=== PATIENT | female | born 1990 | race Caucasian/White ===

== ENCOUNTER → 2016-08-10 | Day surgery (SDC) | payer OTHER ==
[~2016-08-10] VITALS: Ht 162.6 cm; Wt 96.6 kg
[~2016-08-10] MED LIST: BUPIVACAINE HCL PF 0.5% 30 ML VIAL ONE; DO NOT ADM ANY ANTICOAGULANT DRUGS XX PRN; FAMOTIDINE 20 MG/2 ML VIAL ONE; FERRIC SUBSULFATE 8 ML TOP SOLN TOPICAL ONE; INSULIN HUMAN REGULAR 1,000 UNITS/10 ML VIAL SQ PRN; LACTATED RINGER'S 1000 ML IV SCH; LIDOCAINE 0.5%/EPINEPHrine 1:200,000 SOLN 50 ML VIAL ONE; METOPROLOL TARTRATE 25 MG TAB PO PRN; NEOSTIGMINE 3 MG/3 ML SYR IV ONE; NORE5TAB PO; ONDANSETRON HCL 4 MG/2 ML VIAL IV PUSH ONE; PROPOFOL 200 MG/20 ML AMP IV ONE; SODIUM CHLORID 0.9% 500 ML IV SCH; ceFAZolin 2 GM PREMIX 50 ML ONE; fentaNYL CITRATE 250 MCG/5 ML AMP ONE; metroNIDAZOLE 500 MG INJ 100 ML IV ONE
[2016-08-10 11:27] VITALS: BP 134/75; PULSE 92; RESP 20; TEMP 97.7
[2016-08-10 11:42] LABS: BASOPHIL % 0.5 % (0.0-2.0); EOSINOPHIL % 0.4 % (0.0-4.0); HEMATOCRIT 42.8 % (35.0-46.0); HEMO FLAGS DIFF FINAL; LYMPHOCYTE # 3.6 TH/MM3 (1.0-4.8); MEAN CELL VOLUME 85.3 FL (80.0-100.0); MEAN CORPUSCULAR HEMOGLOBIN 29.5 PG (27.0-34.0); MEAN CORPUSCULAR HGB CONC 34.5 % (32.0-36.0); MONO % 6.8 % (0.0-8.0); NEUT % 53.3 % (16.0-70.0); PLATELET COUNT 397 TH/MM3 (150-450); RED BLOOD COUNT 5.02 MIL/MM3 (4.00-5.30); RED CELL DISTRIBUTION WIDTH 13.5 % (11.6-17.2); WHITE BLOOD COUNT 9.3 TH/MM3 (4.0-11.0)
[2016-08-10 15:25] VITALS: BP 110/69; PULSE 68; RESP 20; TEMP 97.6; O2SAT 97
--- NOTE | 2016-08-13 22:38 | MP ---
cc: VALDEMAR CHAPA M.D., MD,[facility] DATE OF SURGERY August 10, 2016 PREOPERATIVE DIAGNOSIS Left anterior [id number]. POSTOPERATIVE DIAGNOSIS Left anterior [id number]-rr-czy. PROCEDURE Left anterior fistulotomy. ANESTHESIA General endotracheal. SURGEON Dr. Luu. AWNING FRAME MAKER Dr. Beckman. ESTIMATED BLOOD LOSS Minimal. OPERATIVE FINDINGS This patient had a left perirectal abscess incised and drained and then underwent further incision and drainage by Dr. Valdemar Chapa some months ago. Dr. Chapa sent her to me for definitive treatment. I followed her along as the wounds closed, however, she clearly had an anterior poeaxxv-rh-clk. I could not find the internal opening in the office on exam. I was not sure whether it was very superficial or deep, and I had her prepared for anterior advancement flap in case fistulotomy was not indicated. At surgery, however, it was very superficial, anterior chbvnpt-ww-nym encompassing only a small amount of probable distal internal sphincter and superficial external sphincter, really only a very superficial amount of muscle fibers and straight fistulotomy was done. OPERATIVE TECHNIQUE The patient was placed on the table in prone position after general endotracheal anesthesia and the buttocks was taped apart. The area was injected 0.5% Xylocaine with epinephrine and the Suarez bivalve retractor was inserted into the anal canal. The probe was placed in the external opening and came out through the internal opening just to the left of anterior. There was no accessory tracts to the vagina or elsewhere. No higher tracts and no tracts laterally. The external opening was to the medial side of the fairly long 5 cm incision on her buttocks. No tracts seemed to track laterally. Once the fistulotomy was done the area was curetted clean and hemostasis was obtained with electrocautery. Some Monsel's solution was placed in the wound. Dressings were applied. Sponge, needle and instrument counts were reported as correct. Estimated blood loss was minimal. The patient tolerated the procedure well and left the operating room in good condition. MD VEE Green/MELANIA /2:13 PM /9:23 PM
== END | disposition home or self-care (01) ==
LOC: HSDC 10:49
PROVIDERS: ATTEND Colon & Rectal Surgery
DX: K60.3 Anal fistula (principal)
CPT/HCPCS: 00902; 46288; 85025; 88305; J0690; J2405; J2710; J3010; J7120